=== PATIENT | male | born 1955 | race African-American/Black ===

== ENCOUNTER 2019-04-25 20:06 | Inpatient (IN) | payer MEDICAID ==
[~2019-04-25] VITALS: Ht 162.6 cm; Wt 83.1 kg
[2019-04-25 21:02] LABS: BASOPHILS % 0.7 % (0.0-2.0); EOSINOPHILS % 5.5 % (0.0-5.0); HEMATOCRIT. 38.8 % (42.0-52.0); MEAN CORPUSCULAR HEMOGLOBIN 31.2 pg (28.0-32.0); MEAN CORPUSCULAR VOLUME 93.2 fL (80.0-94.0); MEAN PLATELET VOLUME 7.8 fl (7.4-10.4); MONOCYTES % 6.9 % (2.0-8.0); NEUTROPHILS % 74.9 % (40.0-76.0); PLATELET 177 x1000/uL (130-400); RED BLOOD CELL COUNT 4.17 mill/uL (4.7-6.1); RED CELL DISTRIBUTION WIDTH 13.4 % (11.6-14.6)
[2019-04-25 21:06] LABS: CHLORIDE 98 mEq/L (98-107)
[2019-04-25 21:12] LABS: ETHANOL BLOOD < 10 mg/dL
[2019-04-25] MEDS ORDERED: LABETALOL 5MG/ML SYR 20 MG/4 ML SYRINGE IV ONE (21:15)
[2019-04-25] MEDS ORDERED: SODIUM POLYSTYRENE SULFONATE 15 G/60 ML BOT PO ONE (22:00)
[2019-04-25] MEDS ORDERED: INSULIN REGULAR (HUMULIN R) 300UNITS/3ML IV ONE (22:00)
[2019-04-25] MEDS ORDERED: SODIUM BICARBONATE 8.4% 1 MEQ/ML 50ML SYR IV ONE (22:00)
[2019-04-25] MEDS ORDERED: DEXTROSE 50% WATER 50ML SYRINGE IV ONE (22:00)
[2019-04-25] MEDS ORDERED: CALCIUM GLUCONATE 100MG/ML 10ML VIAL IV NR (22:15)
[2019-04-25] MEDS ORDERED: HYDRALAZINE 20MG/ML VIAL IV ONE (23:00)
[2019-04-25] MEDS ORDERED: VANCOMYCIN 1 G PREMIX 200 ML IV NR (23:15)
[2019-04-25] MEDS ORDERED: CEFEPIME HCL 2000MG/VIAL INJ IV ONE (23:15)
[2019-04-25] MEDS ORDERED: CEFEPIME 2,000 MG in DEXT 5% WATER 100 ML IV NR (23:30)
[2019-04-26] VITALS (21 sets, daily range): BP systolic 120–225; BP diastolic 62–104
[2019-04-26] MEDS ORDERED: DEXTROSE 50% WATER 50ML SYRINGE IV NR (01:30)
[2019-04-26] MEDS ORDERED: MECLIZINE 25MG TABLET PO PRN (07:45)
[2019-04-26] MEDS: CLOPIDOGREL 75MG TABLET PO SCH ×2 (07:45→09:00)
[2019-04-26] MEDS: CLONIDINE 0.1MG TABLET PO PRN (08:06)
[2019-04-26] MEDS ORDERED: AMLODIPINE 5MG TABLET PO SCH (09:00)
[2019-04-26 09:55] LABS: BG CARBOXYHEMOGLOBIN 0.6 % (0.5-1.5); BG DEOXYHEMOGLOBIN 4.6 % (0.0-5.0); BG METHEMOGLOBIN 0.2 % (0.0-1.5); BG OXYGEN SATURATION 95.4 % (92.0-98.5); BG OXYHEMOGLOBIN 94.6 % (94.0-97.0); BG PCO2 32.3 mmHg (35.0-45.0); BG PH 7.388 (7.350-7.450); BG PO2 87.5 mmHg (75.0-100.0); BG SAMPLE SITE RIGHT BRACHIAL; BG TOTAL HEMOGLOBIN 13.4 g/dL (12.0-18.0); BG VENT MODE ROOM AIR
[2019-04-26] MEDS: AMLODIPINE 5MG TABLET PO SCH ×3 (11:17→21:43)
[2019-04-26] MEDS: BLOOD SUGAR DIAGNOSTIC STRIP TEST SCH ×3 (12:45→21:10)
[2019-04-26] MEDS: ENOXAPARIN 30MG/0.3ML SYR SUBCUT SCH (13:00)
[2019-04-26 13:22] LABS: EOSINOPHILS % 11.8 % (0.0-5.0); HEMATOCRIT. 39.6 % (42.0-52.0); HEMOGLOBIN. 13.3 g/dL (14.0-18.0); LYMPHOCYTES % 13.2 % (20.0-50.0); MEAN CORPUSCULAR VOLUME 92.7 fL (80.0-94.0); MEAN PLATELET VOLUME 7.5 fl (7.4-10.4); MONOCYTES % 6.2 % (2.0-8.0); NEUTROPHILS % 67.8 % (40.0-76.0); PLATELET 184 x1000/uL (130-400); RED BLOOD CELL COUNT 4.27 mill/uL (4.7-6.1); RED CELL DISTRIBUTION WIDTH 13.6 % (11.6-14.6)
[2019-04-26] MEDS ORDERED: LABETALOL 5MG/ML SYR 20 MG/4 ML SYRINGE IV NR (13:30)
[2019-04-26 14:00] LABS: PROTHROMBIN TIME 10.8 sec (9.6-11.0)
[2019-04-26] MEDS ORDERED: HYDRALAZINE HCL 50MG TABLET PO SCH (14:00)
[2019-04-26] MEDS: HYDRALAZINE HCL 50MG TABLET PO SCH ×3 (14:58→21:44)
[2019-04-26] MEDS: CLONIDINE 0.2MG TABLET PO SCH ×3 (14:58→21:44)
[2019-04-26] MEDS ORDERED: IOHEXOL-350 100 ML BOTTLE ONE (20:21)
[2019-04-26] MEDS: HYDRALAZINE 20MG/ML VIAL IV PRN (20:38)
[2019-04-27] VITALS (34 sets, daily range): BP systolic 107–172; BP diastolic 59–121
[2019-04-27] MEDS: HYDRALAZINE 20MG/ML VIAL IV PRN (02:32)
[2019-04-27] MEDS ORDERED: MORPHINE SULFATE 2 MG/ML CPJ (NOT FOR IM USE) IV PRN (05:15)
[2019-04-27 05:44] LABS: BASOPHILS % 0.7 % (0.0-2.0); EOSINOPHILS % 7.6 % (0.0-5.0); HEMATOCRIT. 40.6 % (42.0-52.0); HEMOGLOBIN. 13.6 g/dL (14.0-18.0); LYMPHOCYTES % 15.7 % (20.0-50.0); MEAN CORPUSCULAR HEMOGLOBIN 31.1 pg (28.0-32.0); MEAN PLATELET VOLUME 7.9 fl (7.4-10.4); MONOCYTES % 8.3 % (2.0-8.0); NEUTROPHILS % 67.7 % (40.0-76.0); PLATELET 173 x1000/uL (130-400); RED BLOOD CELL COUNT 4.36 mill/uL (4.7-6.1); RED CELL DISTRIBUTION WIDTH 13.7 % (11.6-14.6)
[2019-04-27] MEDS: HYDRALAZINE HCL 50MG TABLET PO SCH ×3 (06:27→22:00)
[2019-04-27] MEDS: BLOOD SUGAR DIAGNOSTIC STRIP TEST SCH ×4 (06:28→20:32)
[2019-04-27] MEDS: CLONIDINE 0.2MG TABLET PO SCH ×3 (06:28→22:00)
[2019-04-27] MEDS: CLOPIDOGREL 75MG TABLET PO SCH (08:21)
[2019-04-27] MEDS: AMLODIPINE 5MG TABLET PO SCH ×2 (08:21→21:00)
[2019-04-27] MEDS ORDERED: MORPHINE SULFATE 4 MG/ML CPJ (NOT FOR IM USE) IV PRN (09:00)
[2019-04-27] MEDS: CLONIDINE 0.1MG TABLET PO PRN (11:47)
[2019-04-27] MEDS: ENOXAPARIN 30MG/0.3ML SYR SUBCUT SCH (14:12)
[2019-04-27] MEDS ORDERED: HYDROCODONE/ACETAMINOPHEN 5/325MG TABLET PO PRN (19:45)
[2019-04-27] MEDS ORDERED: PROMETHAZINE HCL 25MG TABLET PO PRN (19:45)
[2019-04-28] VITALS: BP 98/52
[2019-04-28 04:00] VITALS: BP 100/56
[2019-04-28] MEDS: HYDRALAZINE HCL 50MG TABLET PO SCH (06:00)
[2019-04-28] MEDS: CLONIDINE 0.2MG TABLET PO SCH (06:00)
== END 2019-04-28 07:10 | disposition left against medical advice (07) | DRG 48 ==
LOC: ER 20:06 → 5EST 21:46 → EDBEDREQ 21:59 → EDBEDREQTM 21:59 → CANRESERV 22:21 → ENRESERV 22:21 → EDBEDREQSVC 04-26 00:02 → ENRESERV 04-26 00:05 → MICUSO 04-26 18:45 → 6WST 04-27 16:15
PROVIDERS: ADMIT Internal Medicine; ATTEND Internal Medicine
PROC: 5A1D70Z Performance of Urinary Filtration, Intermittent, Less than 6 Hours Per Day (ICD-10-PCS; principal; 2019-04-26)
PROC: 5A1D70Z Performance of Urinary Filtration, Intermittent, Less than 6 Hours Per Day (ICD-10-PCS; 2019-04-28)
DX: G90.8 Other disorders of autonomic nervous system (principal); G92 Toxic encephalopathy; E87.1 Hypo-osmolality and hyponatremia; E87.5 Hyperkalemia; G45.9 Transient cerebral ischemic attack, unspecified; N18.6 End stage renal disease; D63.8 Anemia in other chronic diseases classified elsewhere; I16.1 Hypertensive emergency; E66.9 Obesity, unspecified; I51.7 Cardiomegaly; E87.70 Fluid overload, unspecified; I73.9 Peripheral vascular disease, unspecified; Z99.2 Dependence on renal dialysis; Z68.31 Body mass index [BMI] 31.0-31.9, adult; Z79.899 Other long term (current) drug therapy; Z71.89 Other specified counseling
CPT/HCPCS: 36415; 36600; 70496; 70498; 70551; 71045; 80048; 80061; 80320; 82375; 82805; 82962; 83036; 83880; 84443; 84484; 85384; 93005; 93306; 96374; 96375; 99291; J0360; J0610; J0692; J1650; J1815; J2270; J3370; J3490; J7060; Q0169; Q9967; G0480

== ENCOUNTER 2021-10-19 07:42 | Inpatient (IN) | payer MEDICAID, OTHER ==
[~2021-10-19] VITALS: Ht 182.9 cm; Wt 106.1 kg
[~2021-10-19 07:42] MED LIST: ASPI-1406 MT; CLOP75TA15 PO
[2021-10-19] MEDS ORDERED: VANCOMYCIN 1G PREMIX 200 ML IV SCH (08:15)
[2021-10-19 08:38] LABS: HEMATOCRIT. 43.3 % (42.0-52.0); HEMOGLOBIN. 13.7 g/dL (14.0-18.0); MEAN CORPUSCULAR HEMOGLOBIN 28.3 pg (28.0-32.0); MEAN CORPUSCULAR VOLUME 89.5 fL (80.0-94.0); PLATELET 202 x1000/uL (130-400); RED BLOOD CELL COUNT 4.84 mill/uL (4.7-6.1); RED CELL DISTRIBUTION WIDTH 15.9 % (11.6-14.6)
[2021-10-19 08:47] LABS: CHLORIDE 101 mEq/L (98-107)
[2021-10-19 09:52] LABS: PLATELET ESTIMATE NORMAL
[2021-10-19] MEDS ORDERED: ONDANSETRON HCL 4MG/2ML INJ IV PRN (13:15)
[2021-10-19] MEDS: AMLODIPINE 10MG TABLET PO SCH (13:15)
[2021-10-19] MEDS ORDERED: DOCUSATE SODIUM 100MG CAPSULE PO PRN (13:15)
[2021-10-19] MEDS ORDERED: HYDROCODONE/ACETAMINOPHEN 5/325MG TABLET PO PRN (13:15)
[2021-10-19] MEDS ORDERED: ACETAMINOPHEN 325MG TABLET PO PRN (13:15)
[2021-10-19] MEDS ORDERED: ENOXAPARIN 30MG/0.3ML SYR SUBCUT SCH (14:00)
[2021-10-19] MEDS: PIPERACILLIN/TAZOBACTAM 3.375 G in DEXTROSE 5% WATER 50 ML IV SCH (14:42)
[2021-10-19] MEDS: CLONIDINE 0.1MG TABLET PO PRN (15:11)
[2021-10-19 19:06] LABS: HEPATITIS B SURFACE ANTIGEN NEGATIVE
[2021-10-19 20:00] VITALS: BP 155/92
[2021-10-19 21:31] VITALS: BP 155/92
[2021-10-20] VITALS: BP 153/90
[2021-10-20] MEDS: PIPERACILLIN/TAZOBACTAM 3.375 G in DEXTROSE 5% WATER 50 ML IV SCH ×2 (01:02→17:09)
[2021-10-20 04:00] VITALS: BP 132/77
[2021-10-20 06:22] LABS: HEMATOCRIT. 39.1 % (42.0-52.0); HEMOGLOBIN. 12.7 g/dL (14.0-18.0); MEAN CORPUSCULAR HEMOGLOBIN 28.8 pg (28.0-32.0); MEAN CORPUSCULAR VOLUME 88.9 fL (80.0-94.0); MEAN PLATELET VOLUME 8.2 fl (7.4-10.4); PLATELET 177 x1000/uL (130-400); RED BLOOD CELL COUNT 4.39 mill/uL (4.7-6.1); RED CELL DISTRIBUTION WIDTH 15.9 % (11.6-14.6)
[2021-10-20 06:29] LABS: CHLORIDE 102 mEq/L (98-107)
[2021-10-20 06:45] LABS: HDL CHOLESTEROL 31 mg/dL (40-59); LDL CHOLESTEROL 82 mg/dL (5-100)
[2021-10-20 08:00] VITALS: BP 140/77
[2021-10-20] MEDS: AMLODIPINE 10MG TABLET PO SCH (08:43)
[2021-10-20] MEDS ORDERED: SODIUM BICARBONATE 8.4% 1 MEQ/ML 50ML SYR IV SCH (10:57)
[2021-10-20] MEDS ORDERED: INSULIN REGULAR (HUMULIN R) UD 100 UNITS/ML SYR IV SCH (11:30)
[2021-10-20] MEDS ORDERED: DEXTROSE 50% WATER 50ML SYRINGE IV SCH (11:30)
[2021-10-20 12:00] VITALS: BP 110/55
[2021-10-20] MEDS ORDERED: CALCIUM CHLORIDE 1,000 MG in DEXT 5% WATER 100 ML IV SCH (12:00)
[2021-10-20] MEDS ORDERED: DEXTROSE 50% WATER 50ML SYRINGE IV NR (14:45)
[2021-10-20] MEDS: ENOXAPARIN 40MG/0.4ML SYR SUBCUT SCH (15:32)
[2021-10-20] MEDS ORDERED: IOHEXOL-350 100 ML BOTTLE ONE (16:45)
[2021-10-20 16:53] LABS: PLATELET ESTIMATE NORMAL
[2021-10-20] MEDS ORDERED: VANCOMYCIN 500 MG in DEXT 5% WATER 100 ML IV NR (18:00)
[2021-10-20 20:00] VITALS: BP 111/35
[2021-10-21] VITALS (7 sets, daily range): BP systolic 112–162; BP diastolic 24–82
[2021-10-21] MEDS: PIPERACILLIN/TAZOBACTAM 3.375 G in DEXTROSE 5% WATER 50 ML IV SCH ×2 (02:50→19:12)
[2021-10-21 07:51] LABS: HEMATOCRIT. 40.1 % (42.0-52.0); HEMOGLOBIN. 13.1 g/dL (14.0-18.0); MEAN CORPUSCULAR HEMOGLOBIN 28.5 pg (28.0-32.0); MEAN CORPUSCULAR VOLUME 87.5 fL (80.0-94.0); MEAN PLATELET VOLUME 8.2 fl (7.4-10.4); PLATELET 180 x1000/uL (130-400); RED BLOOD CELL COUNT 4.58 mill/uL (4.7-6.1); RED CELL DISTRIBUTION WIDTH 15.8 % (11.6-14.6)
[2021-10-21] MEDS ORDERED: LIDOCAINE HCL 1% 10 MG/ML 10ML VIAL ONE (08:22)
[2021-10-21] MEDS ORDERED: IODIXANOL 320MG/ML 100 ML BOTTLE IV ONE (08:22)
[2021-10-21] MEDS ORDERED: FENTANYL CITRATE/PF 50MCG/ML 2ML VIAL ONE (08:26)
[2021-10-21] MEDS ORDERED: MIDAZOLAM HCL 2 MG/2 ML VIAL ONE ×2 (08:26→09:21)
[2021-10-21] MEDS ORDERED: HEPARIN 1000 UNITS/ML 10ML ONE (08:48)
[2021-10-21] MEDS ORDERED: CLOPIDOGREL 75MG TABLET ONE (09:37)
[2021-10-21 09:45] LABS: PLATELET ESTIMATE NORMAL
[2021-10-21] MEDS: AMLODIPINE 10MG TABLET PO SCH (10:41)
[2021-10-21] MEDS: ENOXAPARIN 40MG/0.4ML SYR SUBCUT SCH (10:42)
[2021-10-22] VITALS: BP 117/77
[2021-10-22 04:00] VITALS: BP 128/78
[2021-10-22 08:00] VITALS: BP 166/82
[2021-10-22 08:29] LABS: HEMATOCRIT. 40.1 % (42.0-52.0); HEMOGLOBIN. 13.1 g/dL (14.0-18.0); MEAN CORPUSCULAR HEMOGLOBIN 28.8 pg (28.0-32.0); MEAN CORPUSCULAR VOLUME 88.1 fL (80.0-94.0); MEAN PLATELET VOLUME 8.1 fl (7.4-10.4); PLATELET 172 x1000/uL (130-400); RED BLOOD CELL COUNT 4.54 mill/uL (4.7-6.1); RED CELL DISTRIBUTION WIDTH 15.7 % (11.6-14.6)
[2021-10-22] MEDS ORDERED: CLOPIDOGREL 75MG TABLET PO SCH (09:00)
[2021-10-22] MEDS: PIPERACILLIN/TAZOBACTAM 3.375 G in DEXTROSE 5% WATER 50 ML IV SCH (10:13)
[2021-10-22] MEDS: ENOXAPARIN 40MG/0.4ML SYR SUBCUT SCH (10:14)
[2021-10-22] MEDS: AMLODIPINE 10MG TABLET PO SCH (10:14)
[2021-10-22 10:33] LABS: PLATELET ESTIMATE NORMAL
[2021-10-22] MEDS: CLONIDINE 0.1MG TABLET PO PRN (11:38)
[2021-10-22 12:00] VITALS: BP 155/87
[2021-10-22 12:06] VITALS: BP 161/85
[2021-10-22] MEDS ORDERED: NALOXONE HCL 0.4MG/ML VIAL IV PRN (18:30)
== END 2021-10-22 14:40 | disposition home or self-care (01) | DRG 182 ==
LOC: ER 07:58 → 8WST 12:47 → ENRESERV 14:33
PROVIDERS: ADMIT Hospitalist; ATTEND Hospitalist
PROC: 5A1D70Z Performance of Urinary Filtration, Intermittent, Less than 6 Hours Per Day (ICD-10-PCS; 2021-10-20)
PROC: 04CR3ZZ Extirpation of Matter from Right Posterior Tibial Artery, Percutaneous Approach (ICD-10-PCS; principal; 2021-10-21)
PROC: 047M3ZZ Dilation of Right Popliteal Artery, Percutaneous Approach (ICD-10-PCS; 2021-10-21)
PROC: B41F1ZZ Fluoroscopy of Right Lower Extremity Arteries using Low Osmolar Contrast (ICD-10-PCS; 2021-10-21)
PROC: B41C1ZZ Fluoroscopy of Pelvic Arteries using Low Osmolar Contrast (ICD-10-PCS; 2021-10-21)
PROC: 047R3ZZ Dilation of Right Posterior Tibial Artery, Percutaneous Approach (ICD-10-PCS; 2021-10-21)
PROC: 5A1D70Z Performance of Urinary Filtration, Intermittent, Less than 6 Hours Per Day (ICD-10-PCS; 2021-10-21)
DX: I70.235 Atherosclerosis of native arteries of right leg with ulceration of other part of foot (principal); I50.33 Acute on chronic diastolic (congestive) heart failure; N18.6 End stage renal disease; E11.22 Type 2 diabetes mellitus with diabetic chronic kidney disease; E87.1 Hypo-osmolality and hyponatremia; E11.621 Type 2 diabetes mellitus with foot ulcer; D64.9 Anemia, unspecified; E78.5 Hyperlipidemia, unspecified; L97.519 Non-pressure chronic ulcer of other part of right foot with unspecified severity; Z20.822 Contact with and (suspected) exposure to COVID-19; E87.5 Hyperkalemia; I13.2 Hypertensive heart and chronic kidney disease with heart failure and with stage 5 chronic kidney disease, or end stage renal disease; Z82.49 Family history of ischemic heart disease and other diseases of the circulatory system; Z99.2 Dependence on renal dialysis; Z79.82 Long term (current) use of aspirin; Z79.02 Long term (current) use of antithrombotics/antiplatelets; Z89.421 Acquired absence of other right toe(s)
CPT/HCPCS: 36415; 37224; 37229; 37233; 73630; 75635; 75710; 80048; 80053; 80061; 80202; 82962; 84484; 85025; 85347; 86705; 86709; 86803; 87340; 87426; 93005; 93922; 93970; 99285; C1725; C1760; C1769; C1885; C1887; C1893; C1894; C9803; J1644; J1650; J1815; J2250; J2543; J3010; J3370; J3490; J7060; Q9967